=== PATIENT | male | born 1970 | race Caucasian/White ===

== ENCOUNTER 2018-03-07 11:13 | Inpatient (IN) ==
--- NOTE | 2018-03-07 11:39 | Emergency Department Note ---
Skin/Abscess/FB HPI - General Chief complaint: Extremity Injury, Lower Stated complaint: Foot ulcer R foot Time Seen by Provider: 03/07/18 11:24 Source: patient Mode of arrival: ambulatory - History of Present Illness HPI Narrative: Patient states he had an ulcer starting on his right foot on the plantar aspect of the midfoot 1 week ago. Has been increasing swelling and redness to the area. Temperature is 97.2 pulse 104 blood pressure 115/83 pulse ox is 96%. He has no history of diabetes he has had a recent A1c which was 4.6 he has had no previous infections in the past. He has had no trauma no injury to the area. Is an area of redness surrounding the ulceration. Ulcers approximately 1 cm in size - Related Data Home Medications Medication Instructions Recorded Confirmed Acyclovir [Zovirax] 0 gm TP DAILY 03/07/18 03/07/18 Levothyroxine [Synthroid] 50 mcg PO DAILY 03/07/18 03/07/18 PARoxetine HCL [Paxil] 20 mg PO DAILY 03/07/18 03/07/18 Review of Systems All systems ED: reviewed and negative except as stated. Constitutional: Denies: fever Eyes: Denies: eye pain ENT ED: Denies: ear pain Cardiovascular: Denies: chest pain Respiratory: Denies: shortness of breath Gastrointestinal: Denies: abdominal pain Genitourinary: Denies: dysuria Musculoskeletal: Denies: back pain Integumentary: Denies: rash Neurological: Denies: headache Psychiatric: Denies: anxiety Endocrine: Denies: fatigue Hematological/Lymphatic: Denies: easy bleeding Past Medical History - Past Medical History Medical history: Reports: thyroid disease Surgical history ED: Reports: other (ORIF right foot) Family history: Reports: diabetes (Mother father) - Social History smoking status: Current some day smoker (Cigars only) Alcohol use: Reports: Occasionally Drug use: Reports: none Physical Exam Limitations: no limitations General appearance: alert Head: atraumatic Eye: Present: normal appearance ENT: normal exam, normal oropharynx Neck: Present: normal inspection, full ROM Chest: Present: normal inspection Respiratory: Present: normal lung sounds bilaterally. Absent: respiratory distress, wheezes Cardiovascular: Present: regular rate, normal rhythm. Absent: bradycardia, tachycardia Abdominal: Present: soft, normal bowel sounds. Absent: distention, tenderness, guarding, rebound, rigidity Extremities: Present: normal inspection Shoulder: Present: normal inspection, full ROM Arm: Present: normal inspection, full ROM Elbow: Present: normal inspection, full ROM Forearm/Wrist: Present: normal inspection, full ROM Hand: Present: normal inspection, full ROM Hip/Pelvis: Present: normal inspection, full ROM Upper leg: Present: normal inspection, full ROM Knee: Present: normal inspection, full ROM Lower leg: Present: normal inspection, full ROM, erythema Ankle: Present: normal inspection Foot/toe: Present: tenderness, swelling, erythema, other (1 cm ulceration) Neurovascular/Tendon: Present: sensory deficit Back: Present: normal inspection, full ROM. Absent: tenderness, CVA tenderness (R), CVA tenderness (L) Neurological: Present: alert, oriented X3, CN II-XII intact Psychiatric: Present: normal affect, normal mood Skin: Present: warm, dry Course Vital Signs Temperature 97.2 F 03/07/18 11:14 Pulse Rate 104 H 03/07/18 11:14 Blood Pressure 115/83 03/07/18 11:14 Pulse Oximetry (%) 96 03/07/18 11:14 Temperature 97.2 F 03/07/18 11:14 Pulse Rate 106 H 03/07/18 12:49 Respiratory Rate 18 03/07/18 12:49 Blood Pressure 126/78 03/07/18 12:49 Pulse Oximetry (%) 95 03/07/18 12:49 Skin/Abscess/Foreign Body - MDM Narrative Medical decision making narrative: Dr Cote has been consulted and here to evaluate. felt start on vancomycin and admitt for celllulitis secondary to charcot foot. started on vancomycin and Dr Serna , hospitalist contacted and here to evaluate. - Lab Data Result diagrams: 03/07/18 11:50 Lab Results 03/07/18 03/07/18 03/07/18 Range/Units 11:50 11:50 11:50 WBC 6.1 (4.5-11.0) K/mcL RBC 5.15 (4.50-5.90) M/mcL Hgb 16.7 H (13.5-16.5) g/dL Hct 48.1 (41.0-55.0) % POC Hct 48.0 (41.0-55.0) % MCV 93.4 (80.0-100.0) fL MCH 32.5 (26.0-34.0) pg MCHC 34.7 (31.0-36.0) g/dL RDW 12.6 (11.5-14.5) % Plt Count 180 (140-440) K/mcL MPV 7.5 (7.4-10.4) fL Gran % 81.9 H (38.0-78.0) % Lymph % (Auto) 8.9 L (15.5-49.0) % [place] % (Auto) 7.6 (1.0-12.0) % Eos % (Auto) 1.2 (0.0-7.0) % Baso % (Auto) 0.4 (0.0-2.0) % Gran # 5.0 (1.8-8.0) K/mcL Lymph # (Auto) 0.5 L (1.5-4.8) K/mcL [place] # (Auto) 0.5 (0.1-0.9) K/mcL Eos # (Auto) 0.1 (0.0-0.7) K/mcL Baso # (Auto) 0 (0.0-0.3) K/mcL VBG Lactic Acid 1.5 (0.5-2.2) mmol/L POC Sodium 138 (133-145) mmol/L POC Potassium 3.3 (3.3-5.1) mmol/L POC Chloride 102 (96-108) mmol/L POC Total CO2 22 (22-30) mmol/L POC BUN 18 (6-20) mg/dl POC Creatinine 1.0 (0.7-1.2) mg/dl POC Glucose 137 H (70-105) mg/dL POC WB Ioniz Calcium 1.14 L (1.16-1.32) mmol/L Disposition Pt seen by [facility]/PA only: No Clinical Impression: Cellulitis and abscess of foot Disposition: Xfer As Inpt ([facility]) Condition: Fair Referrals: No,PCP [Primary Care Provider] -
[2018-03-07] MEDS ORDERED: VANCOMYCIN 1,000 MG in 0.9 % SODIUM CHLORIDE 250 ML IV ONE (12:14)
[2018-03-07 12:24] LABS: Basophils # (Auto) 0 K/mcL (0.0-0.3); Basophils % (Auto) 0.4 % (0.0-2.0); Eosinophils # (Auto) 0.1 K/mcL (0.0-0.7); Eosinophils % (Auto) 1.2 % (0.0-7.0); Granulocytes % (Auto) 81.9 % (38.0-78.0); Lymphocytes # (Auto) 0.5 K/mcL (1.5-4.8); Lymphocytes % (Auto) 8.9 % (15.5-49.0); Mean Cell Volume 93.4 fL (80.0-100.0); Mean Corpuscular HGB Conc 34.7 g/dL (31.0-36.0); Mean Corpuscular Hemoglobin 32.5 pg (26.0-34.0); Monocytes # (Auto) 0.5 K/mcL (0.1-0.9); Monocytes % (Auto) 7.6 % (1.0-12.0); Platelet Count 180 K/mcL (140-440); RBC 5.15 M/mcL (4.50-5.90); Red Cell Distribution Width 12.6 % (11.5-14.5)
--- NOTE | 2018-03-07 15:32 | Internal Med History&Physical ---
Medical - H&P: [facility] Patient information: Note initiated : 03/07/18 at 3:28 pm Service Date, if different from initiated Date: [] Patient: Cholo Santamaria a 48 y/o M admitted on for Foot ulcer R foot. Chief Complaint: [] Chief complaint: right foot infection, pain History of present illness: Mr. Santamaria is a 48 year old M PMH of hypothyroidism, previous obesity, peripheral neuropathy of unknown etiology, prior right foot osteomyelitis S/P extended IV antibiotics treatment & removal of nail and plate. He has Charcot foot, and his right foot developed some blisters and progressed to erythema & edema about 1 week ago. Now have pain and ulcerations, which is about 1 cm in size. His symptom worsen in the past couple days and experienced subjective fever and chills the last 1-1/2 days. He has no history of diabetes he has had a recent A1c which was 4.6. All systems: reviewed and no additional remarkable complaints except as stated - Musculoskeletal Musculoskeletal: Present: deformity Medical - H&P: PMH Medical history: Osteomyelitis of the right foot, Hypothyroid on supplement replacement, Peripheral neuropathy, previous obesity, depression. Viral infection of right eye on acyclovir Surgical history: ORIF right foot, subsequent removal of nail and plate due to infection Pertinent family history: Diabetes and CAD Social history: Smokes cigars, not cigarettes. Alcohol use: occasionally Medical - H&P: Meds Home Medications Medication Instructions Recorded Confirmed Type Acyclovir [Zovirax] 400 mg PO BID 03/07/18 03/07/18 History Cetirizine HCl [Zyrtec] 10 mg PO DAILY 03/07/18 03/07/18 History Levothyroxine [Synthroid] 50 mcg PO DAILY 03/07/18 03/07/18 History PARoxetine HCL [Paxil] 20 mg PO DAILY 03/07/18 03/07/18 History guaiFENesin [Expectorant] 600 mg PO HS 03/07/18 03/07/18 History guaiFENesin [Expectorant] 800 mg PO DAILY 03/07/18 03/07/18 History Allergies Allergy/AdvReac Type Severity Reaction Status Date / Time bee venom protein (honey bee) Allergy Severe Anaphylaxis Verified 03/07/18 17:34 Medical - H&P: Exam - Constitutional Vitals: Temp Pulse Resp BP Pulse Ox 97.2 F 86 18 123/79 95 03/07/18 11:14 03/07/18 13:28 03/07/18 13:28 03/07/18 13:28 03/07/18 13:28 General appearance: mild distress - Head Head exam: Present: atraumatic, normocephalic - Eye Eye exam: Present: EOMI Pupils: Present: normal accommodation, PERRL - ENT ENT exam: Present: mucous membranes dry - Neck Neck exam: Present: full ROM. Absent: lymphadenopathy, meningismus, tenderness - Respiratory Respiratory exam: Present: CTAB. Absent: accessory muscle use - Cardiovascular Cardiovascular exam: Present: +S1, +S2. Absent: gallop, rubs - GI/Abdominal GI/Abdominal exam: Present: normal bowel sounds, soft. Absent: guarding, rebound, tenderness - Extremities Exam Extremities exam: Present: tenderness Additional comments: Right foot lateral plantar surface with tenderness, erythema and edema, roughly 1 cm lesion, with ulceration. - Neurological Exam Neurological exam: Present: alert, CN II-XII intact, oriented X3 - Psychiatric Psychiatric exam: Present: flat affect - Skin Skin exam: Present: dry, warm Medical - H&P: Reslt - Labs CBC & Chem 7: 03/09/18 03:50 03/09/18 03:50 Labs: Short CBC 03/07/18 Range/Units 11:50 WBC 6.1 (4.5-11.0) K/mcL Hgb 16.7 H (13.5-16.5) g/dL Hct 48.1 (41.0-55.0) % Plt Count 180 (140-440) K/mcL Medical - H&P: A/P (1) Cellulitis and abscess of foot Problem details: IV antibiotics, review labs and MRI. Enocer recommendations later. Current visit: Yes Status: Acute (2) Hypothyroidism Current visit: Yes Status: Acute (3) Peripheral neuropathy and sensorineural hearing impairment syndrome Current visit: Yes Status: Acute (4) Depression Current visit: Yes Status: Acute - Narrative A/P Narrative: Blood cultures, MRI of the right foot to rule out osteomyelitis, broad coverage IV antibiotics vancomycin and Rocephin. Check thyroid status and titrate levothyroxine supplement We'll get consult with Dr. Cote
[2018-03-07] MEDS ORDERED: ONDANSETRON 4 MG/2 ML VIAL IV PRN ×2 (16:07→17:26)
[2018-03-07] MEDS ORDERED: ACETAMINOPHEN 325 MG TABLET PO PRN ×2 (16:07→17:26)
[2018-03-07] MEDS ORDERED: HYDROcodone/APAP 5/325MG TABLET PO PRN ×2 (16:07→17:26)
[2018-03-07] MEDS ORDERED: POTASSIUM CHLORIDE 20 MEQ TABLET PO ONE ×2 (16:25→17:26)
[2018-03-07] MEDS ORDERED: VANCOMYCIN PER PHARMACY IV SCH (17:26)
[2018-03-07] MEDS: NACL 0.9% W/KCL 20MEQ 1,000 ML IV SCH (17:35)
[2018-03-07] MEDS ORDERED: cefTRIAXone 2 GM VIAL IV SCH (18:00)
[2018-03-07] MEDS ORDERED: GADOTERIDOL INJ 20 ML/VIAL IV ONE (18:59)
[2018-03-07] MEDS: DOCUSATE SODIUM 100 MG CAPSULE PO SCH (20:43)
[2018-03-07] MEDS: 0.9 % SODIUM CHLORIDE 10 ML SYRINGE IV SCH (20:43)
[2018-03-07 20:57] LABS: Appearance,Urine CLEAR; Bacteria,Urine 0 /hpf (0); Color,Urine AMBER; Glucose,Urine (UA) NEGATIVE (NEG); Ictotest,Urine NEG (NEG); Leukocyte Esterase,Urine NEG /uL (NEG); Mucus,Urine MOD /hpf (0); Protein,Urine 100 mg/dL (NEG); Specific Gravity,Urine 1.038 (1.000-1.035); Urine Blood NEG mg/dL (<0.03); Urine RBC 5 /hpf (0-1); Urine Squamous Epithelial Cell < 1 /hpf (0-4); Urine WBC 4 /hpf (0-4)
--- NOTE | 2018-03-07 20:58 | General Surgery Consult Note ---
History of Present Illness Patient information: Note initiated : 03/07/18 at 8:51 pm Service Date, if different from initiated Date: [] Patient: Cholo Santamaria 48 y/o M admitted on 03/07/18 for Foot ulcer R foot. Chief Complaint: [] Consult date: 03/07/18 Requesting physician: Aldo Haque (Wound Care Management) History of present illness: I saw this 48 year old gentleman in ER along with Dr. Branden Rivera, ER Physician. Patient presented with a trivial skin ulcer of right mid foot over one week ago , which got infected over period of time. There was no improvement with conservative care. Patient now has cellulitis and ACUTE inflammatory changes with streak cellulitis extending proximally towards upper leg. He has neuropathy with chronic wasting and evolving degenerative changes of both feet. Chronic on left foot and acute on right foot with evolving SEPSIS and SIRS. Medications and Allergies Home Medications Medication Instructions Recorded Confirmed Type Acyclovir [Zovirax] 400 mg PO BID 03/07/18 03/07/18 History Cetirizine HCl [Zyrtec] 10 mg PO DAILY 03/07/18 03/07/18 History Levothyroxine [Synthroid] 50 mcg PO DAILY 03/07/18 03/07/18 History PARoxetine HCL [Paxil] 20 mg PO DAILY 03/07/18 03/07/18 History guaiFENesin [Expectorant] 600 mg PO HS 03/07/18 03/07/18 History guaiFENesin [Expectorant] 800 mg PO DAILY 03/07/18 03/07/18 History Allergies Allergy/AdvReac Type Severity Reaction Status Date / Time bee venom protein (honey bee) Allergy Severe Anaphylaxis Verified 03/07/18 17:34 Exam Temp Pulse Resp BP Pulse Ox 98.5 F 95 H 14 135/88 97 03/07/18 19:58 03/07/18 19:58 03/07/18 19:58 03/07/18 19:58 03/07/18 19:58 - General physical appearance well developed, well nourished, no distress - Eyes PERRL, normal ocular movement - ENT normal pinna, normal nares, normal mucosa, no congestion - Head Head exam IM: Present: atraumatic, normal inspection, normocephalic - Neck no masses, no bruits, trachea midline, no venous distension - Cardiovascular Cardiovascular exam IM: Present: normal rate and rhythm - Respiratory normal expansion, normal respiratory effort, clear to auscultation - Abdomen Abdomen: Present: soft, non tender, bowel sounds - Integumentary Present: other (RIGHT foot soft tissue edema from ankle to toes with discoloration and draiange of serous fluid lateral dorsal mid foot area. ) - Neurologic Present: other (Charcot arthropahty and peripheral neuropathy both feet, ankles and legs. ) - Musculoskeletal Present: other (Etablised deformities of left foot due to Charcot arthropathy on LEFT foot and similar evolving changes of RIGHT foot ) - Psychiatric Present: oriented to time, oriented to person, oriented to place, speech is normal, memory intact Results - Labs 03/08/18 04:30 03/08/18 04:30 Abnormal lab results 03/07/18 03/07/18 03/07/18 Range/Units 11:50 11:50 11:50 Hgb 16.7 H (13.5-16.5) g/dL Gran % 81.9 H (38.0-78.0) % Lymph % (Auto) 8.9 L (15.5-49.0) % Lymph # (Auto) 0.5 L (1.5-4.8) K/mcL ESR 35 H (0-15) mm/hr POC Glucose 137 H (70-105) mg/dL POC WB Ioniz Calcium 1.14 L (1.16-1.32) mmol/L Phosphorus (2.7-4.5) mg/dL 03/07/18 Range/Units 11:50 Hgb (13.5-16.5) g/dL Gran % (38.0-78.0) % Lymph % (Auto) (15.5-49.0) % Lymph # (Auto) (1.5-4.8) K/mcL ESR (0-15) mm/hr POC Glucose (70-105) mg/dL POC WB Ioniz Calcium (1.16-1.32) mmol/L Phosphorus 2.2 L (2.7-4.5) mg/dL Calcium panel 03/07/18 Range/Units 11:50 Phosphorus 2.2 L (2.7-4.5) mg/dL All other labs normal. Assessment and Plan (1) Dermatitis Status: Acute Priority: Medium Comment: IV antibiotics, local wound care. Await imaging studies MRI right foot and ankle (2) Cellulitis and abscess of foot Status: Acute Priority: Medium Comment: IV antibiotics, review labs and MRI. Furhter recommendations later. (3) Sepsis affecting skin Status: Acute Priority: Medium Comment: Reassess and review labs, LATER debridement.
[2018-03-07] MEDS ORDERED: DOCUSATE SODIUM 100 MG CAPSULE PO SCH (21:00)
[2018-03-07] MEDS: VANCOMYCIN 1,500 MG in 0.9 % SODIUM CHLORIDE 500 ML IV SCH (21:39)
[2018-03-07] MEDS ORDERED: 0.9 % SODIUM CHLORIDE 10 ML SYRINGE IV SCH (22:00)
[2018-03-07] MEDS: guaiFENesin 600 MG TAB.SR.12H PO SCH (22:32)
[2018-03-08] MEDS: NACL 0.9% W/KCL 20MEQ 1,000 ML IV SCH ×4 (03:53→20:53)
[2018-03-08] MEDS: 0.9 % SODIUM CHLORIDE 10 ML SYRINGE IV SCH ×3 (04:42→20:50)
[2018-03-08 06:21] LABS: Basophils # (Auto) 0 K/mcL (0.0-0.3); Basophils % (Auto) 0.9 % (0.0-2.0); Eosinophils # (Auto) 0.2 K/mcL (0.0-0.7); Eosinophils % (Auto) 3.3 % (0.0-7.0); Granulocytes % (Auto) 62.7 % (38.0-78.0); Lymphocytes # (Auto) 1.1 K/mcL (1.5-4.8); Lymphocytes % (Auto) 18.9 % (15.5-49.0); Mean Cell Volume 94.6 fL (80.0-100.0); Mean Corpuscular HGB Conc 34.5 g/dL (31.0-36.0); Mean Corpuscular Hemoglobin 32.6 pg (26.0-34.0); Monocytes # (Auto) 0.8 K/mcL (0.1-0.9); Monocytes % (Auto) 14.2 % (1.0-12.0); Platelet Count 178 K/mcL (140-440); RBC 4.43 M/mcL (4.50-5.90); Red Cell Distribution Width 12.6 % (11.5-14.5)
[2018-03-08 06:43] LABS: Estimated Average Glucose(eAG) 97 mg/dL
[2018-03-08 06:55] LABS: ALT/SGPT 15 U/l (0-40); Albumin 3.5 gm/dL (3.2-5.2); Albumin/Globulin Ratio 1.5 (1.0-2.3); Alkaline Phosphatase 52 U/L (39-117); Blood Urea Nitrogen 13 mg/dl (6-20)
[2018-03-08 07:02] LABS: Prealbumin 11.1 mg/dl (20-40)
--- NOTE | 2018-03-08 08:08 | Magnetic Resonance Report ---
History: Draining foot ulcer, neuropathy, evaluate for osteomyelitis TECHNIQUE: Multiplanar imaging was performed using multiple pulse sequences. Prohance contrast was injected and postcontrast T1-weighted views were obtained. FINDINGS: There is a small abscess in the subcutaneous tissues superior lateral to the base of the fifth metatarsal. Measures 1.1 x 1.5 x 2.1 cm. Surrounding this there is moderately severe cellulitis. The edema and cellulitis involves entire foot and extends up to the level of the ankle. The underlying fifth metatarsal shows no evidence of osteomyelitis. However, patient has a Charcot foot with narrowing and early destructive changes in the joint spaces between the talus, calcaneus, navicular, cuboid, cuneiforms and the adjacent bases of the metatarsals. Joint spaces are narrowed and irregular. There are multiple small spurs and small subcortical erosions. There is low level edema throughout the tarsal bones. No fracture is present. There is a pes planus deformity. Mild osteoarthritis is present at the first metatarsal phalangeal joint. IMPRESSION: Abscess in the skin extending down to the deep fascia, superior and lateral to the base of the fifth metatarsal No evidence of osteomyelitis Generalized cellulitis throughout the foot Charcot deformity involving the mid and hindfoot Interpreted and Authenticated by: Lam Karimi 03/08/18
[2018-03-08] MEDS ORDERED: ENOXAPARIN 40 MG/0.4 ML SYRINGE SQ SCH (09:00)
[2018-03-08] MEDS ORDERED: GUAIFENESIN 800 MG PO SCH (09:00)
[2018-03-08] MEDS: cefTRIAXone 2 GM in DEXTROSE 5% IN WATER 50 ML IV SCH (09:34)
[2018-03-08] MEDS: ENOXAPARIN 40 MG/0.4 ML SYRINGE SQ SCH (09:35)
[2018-03-08] MEDS: CETIRIZINE 10 MG TABLET PO SCH (09:35)
[2018-03-08] MEDS: ACYCLOVIR 400 MG TABLET PO SCH ×2 (09:35→20:48)
[2018-03-08] MEDS: LEVOTHYROXINE 50 MCG TABLET PO SCH (09:35)
[2018-03-08] MEDS: PARoxetine 20 MG TABLET PO SCH (09:35)
[2018-03-08] MEDS: guaiFENesin 600 MG TAB.SR.12H PO SCH ×2 (09:35→20:48)
[2018-03-08] MEDS: DOCUSATE SODIUM 100 MG CAPSULE PO SCH ×2 (09:36→20:49)
--- NOTE | 2018-03-08 10:50 | General Surgery Progress Note ---
Subjective Patient reports: no new complaints, other (Patient had an uneventful night. Labs reviewd. Wound examined with Phyllis RAMON) Narrative: Note initiated : 03/08/18 at 10:45 am Service Date, if different from initiated Date: [] Patient: Cholo Santamaria 48 y/o M admitted on 03/07/18 for Foot ulcer R foot. Chief Complaint: [] Objective Temp Pulse Resp BP Pulse Ox 98.5 F 76 18 118/74 95 03/08/18 06:54 03/08/18 06:54 03/08/18 06:54 03/08/18 06:54 03/08/18 06:54 AVSS. No changes in FAVIOLA. Labs MALNUTRITION Pre albumin 11 Elevated CRP and ESR. Normal TSH and A1c. MRI reviewed and report checked. Spoke with Dr. Davian Butcher, [employer] about Charcot disease and management later. L/E: Right foot skin and sub cutaneous abscess dorsal lateral mid foot area. Responding to wound care and IV antibiotics. NEEDS OR debridement and tissue cultures. - Additional Data Intake & Output - Last 24 hours: Intake & Output 03/06/18 03/07/18 03/08/18 03/09/18 05:59 05:59 05:59 05:59 Intake Total 3450 / 3450 Output Total 850 / 850 485 / 485 Balance 2600 / 2600 -485 / -485 Weight 248 lb 14.4 oz - Labs 03/08/18 04:30 03/08/18 04:30 Diabetes panel 03/08/18 Range/Units 04:30 Sodium 139 (133-145) mmol/L Potassium 3.7 (3.3-5.1) mmol/L Chloride 104 (96-108) mmol/L Carbon Dioxide 23 (22-30) mmol/L BUN 13 (6-20) mg/dl Creatinine 0.7 (0.7-1.2) mg/dl Glucose 85 (70-105) mg/dL Hemoglobin A1c 5.0 (4.0-6.0) % HGB Calcium 8.2 L (8.6-10.4) mg/dl AST 17 (0-37) U/l ALT 15 (0-40) U/l Alkaline Phosphatase 52 (39-117) U/L Total Protein 5.9 (5.9-8.4) gm/dL Albumin 3.5 (3.2-5.2) gm/dL Thyroid panel 03/08/18 Range/Units 04:30 TSH 2.41 (0.27-5.01) uIU/ml Calcium panel 03/07/18 03/08/18 Range/Units 11:50 04:30 Calcium 8.2 L (8.6-10.4) mg/dl Phosphorus 2.2 L (2.7-4.5) mg/dL Albumin 3.5 (3.2-5.2) gm/dL Pituitary panel 03/08/18 Range/Units 04:30 Sodium 139 (133-145) mmol/L Potassium 3.7 (3.3-5.1) mmol/L Chloride 104 (96-108) mmol/L Carbon Dioxide 23 (22-30) mmol/L BUN 13 (6-20) mg/dl Creatinine 0.7 (0.7-1.2) mg/dl Glucose 85 (70-105) mg/dL Calcium 8.2 L (8.6-10.4) mg/dl TSH 2.41 (0.27-5.01) uIU/ml Adrenal panel 03/08/18 Range/Units 04:30 Sodium 139 (133-145) mmol/L Potassium 3.7 (3.3-5.1) mmol/L Chloride 104 (96-108) mmol/L Carbon Dioxide 23 (22-30) mmol/L BUN 13 (6-20) mg/dl Creatinine 0.7 (0.7-1.2) mg/dl Glucose 85 (70-105) mg/dL Calcium 8.2 L (8.6-10.4) mg/dl Total Bilirubin 0.7 (0.0-1.0) mg/dL AST 17 (0-37) U/l ALT 15 (0-40) U/l Alkaline Phosphatase 52 (39-117) U/L Total Protein 5.9 (5.9-8.4) gm/dL Albumin 3.5 (3.2-5.2) gm/dL Assessment and Plan (1) Dermatitis Problem details: IV antibiotics, local wound care. Await imaging studies MRI right foot and ankle Status: Acute Current Visit: Yes (2) Cellulitis and abscess of foot Problem details: IV antibiotics, review labs and MRI. Furhter recommendations later. Status: Acute Current Visit: Yes (3) Sepsis affecting skin Problem details: Reassess and review labs, LATER debridement. Status: Acute Current Visit: Yes - Narrative A/P Narrative: Assessment: CSSSI right foot, abscess. Plan: OR debridement in AM Spoke with patient at length about indication for procedure, alternatives , nutrition repletion and need for further ongoing wound care and life style changes. Start patient on OXANDRIN 10 mg PO / Day - Time Spent With Patient Total time spent is greater than 50% in coordination of care (as documented) at patient's floor/unit and/or counseling patient:
[2018-03-08] MEDS: VANCOMYCIN 1,500 MG in 0.9 % SODIUM CHLORIDE 500 ML IV SCH ×2 (11:11→21:20)
--- NOTE | 2018-03-08 20:40 | Internal Med Progress Note ---
Medical - PN: Subj Patient information: Note initiated : 03/08/18 at 8:39 pm Service Date, if different from initiated Date: [] Patient: Cholo Santamaria 48 y/o M admitted on 03/07/18 for Foot Ulcer R Foot/ Cellulitis and Abscess of Foot. Chief Complaint: [] Interval history: Podiatry surgery consultation with Dr. Butcher. - Constitutional Vitals: Vital Signs Temp Pulse Resp BP Pulse Ox 98.8 F 79 24 H 115/80 97 03/08/18 19:49 03/08/18 19:49 03/08/18 19:49 03/08/18 19:49 03/08/18 19:49 Period Temp Pulse Resp BP Sys/Bull Pulse Ox Last 24 Hr 98.1 F-100.0 F 71-96 14-24 113-131/67-80 94-97 Intake and Output 03/08/18 03/08/18 03/08/18 05:59 13:59 21:59 Intake Total 2900 / 2900 1400 / 1400 Output Total 500 / 500 485 / 485 Balance 2400 / 2400 915 / 915 Weight 248 lb 14.4 oz 251 lb 6.4 oz Patient Weight 03/09/18 05:59 Weight 251 lb 6.4 oz Intake & Output: Intake & Output 03/08/18 03/08/18 03/08/18 05:59 13:59 21:59 Intake Total 2900 / 2900 1400 / 1400 Output Total 500 / 500 485 / 485 Balance 2400 / 2400 915 / 915 Weight 248 lb 14.4 oz 251 lb 6.4 oz Intake: IV 1500 / 1500 1000 / 1000 NaCl 0.9% W/KCl 20Meq 1000ML 1, 1000 / 1000 1000 / 1000 000 ml @ 150 mls/hr IV .Q6H40M EDU Rx#:[id number] Vancomycin 1,500 mg In Sodium 500 / 500 Chloride 0.9% 500 ml @ 333.3 mls/hr IV Q12H EDU Rx#: [id number] Oral 1400 / 1400 400 / 400 Output: Void Amount 500 / 500 485 / 485 Other: Meal Lunch Dinner Percent of Meal Consumed 100% 100% Feeding Ability Independent # Voids 1 3 # Bowel Movements 1 Medical - PN: Obj Da - Labs CBC & Chem 7: 03/09/18 03:50 03/09/18 03:50 Labs: Abnormal Lab Results 03/08/18 03/08/18 03/07/18 04:30 04:30 20:21 RBC 4.43 L Hgb Gran % Lymph % (Auto) [place] % (Auto) 14.2 H Lymph # (Auto) 1.1 L ESR POC Glucose Calcium 8.2 L POC WB Ioniz Calcium Phosphorus C-React Prot High Sens 157.0 H Prealbumin 11.1 L Ur Specific [place] 1.038 H Urine Protein 100 A Urine Ketones 20 A Urine Bilirubin 2.0 A Urine Urobilinogen 4.0 A Urine RBC 5 H 03/07/18 03/07/18 03/07/18 11:50 11:50 11:50 RBC Hgb Gran % Lymph % (Auto) [place] % (Auto) Lymph # (Auto) ESR 35 H POC Glucose 137 H Calcium POC WB Ioniz Calcium 1.14 L Phosphorus 2.2 L C-React Prot High Sens Prealbumin Ur Specific [place] Urine Protein Urine Ketones Urine Bilirubin Urine Urobilinogen Urine RBC 03/07/18 11:50 RBC Hgb 16.7 H Gran % 81.9 H Lymph % (Auto) 8.9 L [place] % (Auto) Lymph # (Auto) 0.5 L ESR POC Glucose Calcium POC WB Ioniz Calcium Phosphorus C-React Prot High Sens Prealbumin Ur Specific [place] Urine Protein Urine Ketones Urine Bilirubin Urine Urobilinogen Urine RBC Meds: Medications Acetaminophen (Tylenol) 650 mg PO Q6HP PRN PRN Reason: PAIN/FEVER > 101 Hydrocodone Bitart/Acetaminophen ([place] 5/325mg) 1 tab PO Q6HP PRN PRN Reason: PAIN LEVEL 3-6 Last Admin: 03/07/18 22:15 Dose: 1 tab Acyclovir (Zovirax) 400 mg PO BID [facility] [place] Last Admin: 03/08/18 09:35 Dose: 400 mg Cetirizine HCl (Zyrtec) 10 mg PO DAILY [facility] Last Admin: 03/08/18 09:35 Dose: 10 mg Docusate Sodium (Colace) 100 mg PO BID [facility] [place] Last Admin: 03/08/18 09:36 Dose: Not Given Enoxaparin Sodium (Lovenox) 40 mg SQ DAILY [facility] Last Admin: 03/08/18 09:35 Dose: 40 mg Guaifenesin (Mucinex) 600 mg PO BID [facility] Last Admin: 03/08/18 09:35 Dose: 600 mg Potassium Chloride/Sodium Chloride (Nacl 0.9% W/Kcl 20meq 1000ml) 1,000 mls @ 150 mls/hr IV .Q6H40M [facility] [place] Last Admin: 03/08/18 14:23 Dose: 150 mls/hr Vancomycin HCl 1,500 mg/ (Sodium Chloride) 500 mls @ 333.3 mls/hr IV Q12H [facility] [place] [place] Last Admin: 03/08/18 11:11 Dose: 333.3 mls/hr Ceftriaxone Sodium 2 gm/ (Dextrose) 50 mls @ 100 mls/hr IV Q24H [facility] [place] Last Admin: 03/08/18 09:34 Dose: 100 mls/hr Gentamicin Sulfate 40 mg/Clindamycin Phosphate 300 mg/Bacitracin 25,000 unit/ Sodium Chloride 3,003 mls @ 0 mls/hr IRR ONCE [facility] [place] PRN Reason: As Directed Stop: 03/09/18 12:00 Levothyroxine Sodium (Synthroid) 50 mcg PO QAMAC [facility] [place] Last Admin: 03/08/18 09:35 Dose: 50 mcg Ondansetron HCl (Zofran) 4 mg IV Q6HP PRN PRN Reason: Nausea And Vomiting Oxandrolone (Oxandrin) 5 mg PO BID [facility] [place] Paroxetine HCl (Paxil) 20 mg PO DAILY [facility] Last Admin: 03/08/18 09:35 Dose: 20 mg Sodium Chloride (Saline Flush) 10 ml IV Q8 [facility] Last Admin: 03/08/18 14:24 Dose: Not Given Vancomycin HCl (Vancomycin Per Pharmacy) 1 order IV UD [facility] Medical - PN: A/P - Time Spent With Patient Total time spent is greater than 50% in coordination of care (as documented) at patient's floor/unit and/or counseling patient: (1) Cellulitis and abscess of foot Problem details: IV antibiotics, review labs and MRI. Karleehter recommendations later. Status: Acute Current Visit: Yes (2) Hypothyroidism Status: Acute Current Visit: Yes (3) Peripheral neuropathy and sensorineural hearing impairment syndrome Status: Acute Current Visit: Yes (4) Depression Status: Acute Current Visit: Yes
[2018-03-08] MEDS: OXANDROLONE 2.5 MG TABLET PO SCH (20:47)
[2018-03-09 05:17] LABS: Basophils # (Auto) 0 K/mcL (0.0-0.3); Eosinophils # (Auto) 0.3 K/mcL (0.0-0.7); Granulocytes % (Auto) 50.9 % (38.0-78.0); Lymphocytes # (Auto) 1.4 K/mcL (1.5-4.8); Lymphocytes % (Auto) 32.4 % (15.5-49.0); Mean Cell Volume 94.7 fL (80.0-100.0); Mean Corpuscular HGB Conc 34.5 g/dL (31.0-36.0); Mean Corpuscular Hemoglobin 32.7 pg (26.0-34.0); Monocytes # (Auto) 0.4 K/mcL (0.1-0.9); Monocytes % (Auto) 9.7 % (1.0-12.0); Platelet Count 210 K/mcL (140-440); RBC 4.14 M/mcL (4.50-5.90); Red Cell Distribution Width 12.6 % (11.5-14.5)
[2018-03-09] MEDS: 0.9 % SODIUM CHLORIDE 10 ML SYRINGE IV SCH ×3 (05:21→21:14)
[2018-03-09 05:33] LABS: ALT/SGPT 14 U/l (0-40); Albumin 3.3 gm/dL (3.2-5.2); Albumin/Globulin Ratio 1.4 (1.0-2.3); Alkaline Phosphatase 46 U/L (39-117); Blood Urea Nitrogen 12 mg/dl (6-20)
[2018-03-09] MEDS ORDERED: GENTAMICIN SULFATE 40 MG, CLINDAMYCIN 300 MG, BACITRACIN 25,000 UNIT in SODIUM CHLORIDE... IRR SCH (07:00)
[2018-03-09] MEDS: NACL 0.9% W/KCL 20MEQ 1,000 ML IV SCH ×3 (07:09→10:59)
[2018-03-09] MEDS: LEVOTHYROXINE 50 MCG TABLET PO SCH (07:10)
[2018-03-09] MEDS: VANCOMYCIN 1,500 MG in 0.9 % SODIUM CHLORIDE 500 ML IV SCH ×3 (07:41→21:14)
--- NOTE | 2018-03-09 07:49 | Internal Med Progress Note ---
Medical - PN: Subj Patient information: Note initiated : 03/09/18 at 7:48 am Service Date, if different from initiated Date: [] Patient: Cholo Santamaria 48 y/o M admitted on 03/07/18 for Foot Ulcer R Foot/ Cellulitis and Abscess of Foot. Chief Complaint: [] Interval history: Going to OR surgical I&D with Dr. Butcher - Constitutional Vitals: Vital Signs Temp Pulse Resp BP Pulse Ox 97.7 F 62 22 108/70 94 03/09/18 04:00 03/09/18 04:00 03/09/18 04:00 03/09/18 04:00 03/09/18 04:00 Period Temp Pulse Resp BP Sys/Bull Pulse Ox Last 24 Hr 97.7 F-98.8 F 62-82 18-24 108-131/70-84 94-97 Intake and Output 03/08/18 03/09/18 03/09/18 21:59 05:59 13:59 Intake Total 975 / 975 2000 / 2000 Output Total 550 / 550 1750 / 1750 Balance 425 / 425 250 / 250 Weight 251 lb 6.4 oz Intake & Output: Intake & Output 03/08/18 03/09/18 03/09/18 21:59 05:59 13:59 Intake Total 975 / 975 2000 / 2000 Output Total 550 / 550 1750 / 1750 Balance 425 / 425 250 / 250 Weight 251 lb 6.4 oz Intake: IV 975 / 975 1500 / 1500 NaCl 0.9% W/KCl 20Meq 1000ML 1, 975 / 975 1000 / 1000 000 ml @ 150 mls/hr IV .Q6H40M [facility] Rx#:[id number] Vancomycin 1,500 mg In Sodium 500 / 500 Chloride 0.9% 500 ml @ 333.3 mls/hr IV Q12H [facility] Rx#: [id number] Oral 500 / 500 Output: Void Amount 550 / 550 1750 / 1750 Other: Meal Ensure & cheese stick Percent of Meal Consumed 100% Feeding Ability Independent # Voids 3 Medical - PN: Obj Da - Labs CBC & Chem 7: 03/09/18 03:50 03/09/18 03:50 Labs: Abnormal Lab Results 03/09/18 03/09/18 03/08/18 03:50 03:50 04:30 RBC 4.14 L Hgb Hct 39.2 L Gran % Lymph % (Auto) [place] % (Auto) Lymph # (Auto) 1.4 L ESR POC Glucose Calcium 8.3 L 8.2 L POC WB Ioniz Calcium Phosphorus C-React Prot High Sens 157.0 H Total Protein 5.7 L Prealbumin 11.1 L Ur Specific [place] Urine Protein Urine Ketones Urine Bilirubin Urine Urobilinogen Urine RBC 03/08/18 03/07/18 03/07/18 04:30 20:21 11:50 RBC 4.43 L Hgb Hct Gran % Lymph % (Auto) [place] % (Auto) 14.2 H Lymph # (Auto) 1.1 L ESR POC Glucose Calcium POC WB Ioniz Calcium Phosphorus 2.2 L C-React Prot High Sens Total Protein Prealbumin Ur Specific [place] 1.038 H Urine Protein 100 A Urine Ketones 20 A Urine Bilirubin 2.0 A Urine Urobilinogen 4.0 A Urine RBC 5 H 03/07/18 03/07/18 03/07/18 11:50 11:50 11:50 RBC Hgb 16.7 H Hct Gran % 81.9 H Lymph % (Auto) 8.9 L [place] % (Auto) Lymph # (Auto) 0.5 L ESR 35 H POC Glucose 137 H Calcium POC WB Ioniz Calcium 1.14 L Phosphorus C-React Prot High Sens Total Protein Prealbumin Ur Specific [place] Urine Protein Urine Ketones Urine Bilirubin Urine Urobilinogen Urine RBC Meds: Medications Acetaminophen (Tylenol) 650 mg PO Q6HP PRN PRN Reason: PAIN/FEVER > 101 Hydrocodone Bitart/Acetaminophen ([place] 5/325mg) 1 tab PO Q6HP PRN PRN Reason: PAIN LEVEL 3-6 Last Admin: 03/07/18 22:15 Dose: 1 tab Acyclovir (Zovirax) 400 mg PO BID [facility] Last Admin: 03/08/18 20:48 Dose: 400 mg Cetirizine HCl (Zyrtec) 10 mg PO DAILY [facility] Last Admin: 03/08/18 09:35 Dose: 10 mg Docusate Sodium (Colace) 100 mg PO BID [facility] Last Admin: 03/08/18 20:49 Dose: Not Given Enoxaparin Sodium (Lovenox) 40 mg SQ DAILY [facility] Last Admin: 03/08/18 09:35 Dose: 40 mg Guaifenesin (Mucinex) 600 mg PO BID [facility] Last Admin: 03/08/18 20:48 Dose: 600 mg Potassium Chloride/Sodium Chloride (Nacl 0.9% W/Kcl 20meq 1000ml) 1,000 mls @ 150 mls/hr IV .Q6H40M [facility] Last Admin: 03/09/18 07:09 Dose: 150 mls/hr Vancomycin HCl 1,500 mg/ (Sodium Chloride) 500 mls @ 333.3 mls/hr IV Q12H [facility] Last Admin: 03/09/18 07:41 Dose: 333.3 mls/hr Ceftriaxone Sodium 2 gm/ (Dextrose) 50 mls @ 100 mls/hr IV Q24H [facility] Last Admin: 03/08/18 09:34 Dose: 100 mls/hr Gentamicin Sulfate 40 mg/Clindamycin Phosphate 300 mg/Bacitracin 25,000 unit/ Sodium Chloride 3,003 mls @ 0 mls/hr IRR ONCE [facility] PRN Reason: As Directed Stop: 03/09/18 12:00 Levothyroxine Sodium (Synthroid) 50 mcg PO QAMAC [facility] Last Admin: 03/09/18 07:10 Dose: Not Given Ondansetron HCl (Zofran) 4 mg IV Q6HP PRN PRN Reason: Nausea And Vomiting Oxandrolone (Oxandrin) 5 mg PO BID [facility] Last Admin: 03/08/18 20:47 Dose: 5 mg Paroxetine HCl (Paxil) 20 mg PO DAILY [facility] Last Admin: 03/08/18 09:35 Dose: 20 mg Sodium Chloride (Saline Flush) 10 ml IV Q8 [facility] Last Admin: 03/09/18 05:21 Dose: Not Given Vancomycin HCl (Vancomycin Per Pharmacy) 1 order IV UD [facility] Medical - PN: A/P - Time Spent With Patient Total time spent is greater than 50% in coordination of care (as documented) at patient's floor/unit and/or counseling patient: (1) Cellulitis and abscess of foot Problem details: IV antibiotics, review labs and MRI. Furhter recommendations later. Status: Acute Current Visit: Yes (2) Hypothyroidism Status: Acute Current Visit: Yes (3) Peripheral neuropathy and sensorineural hearing impairment syndrome Status: Acute Current Visit: Yes (4) Depression Status: Acute Current Visit: Yes
[2018-03-09] MEDS ORDERED: cefTRIAXone 2 GM VIAL ONE (08:33)
[2018-03-09] MEDS ORDERED: ONDANSETRON 4 MG/2 ML VIAL IV ONE (09:10)
[2018-03-09] MEDS ORDERED: GLYCOPYRROLATE 0.2 MG/ML VIAL IV ONE (09:10)
[2018-03-09] MEDS ORDERED: MIDAZOLAM 2 MG/2 ML VIAL IV ONE (09:10)
[2018-03-09] MEDS ORDERED: PROPOFOL 200 MG/20 ML VIAL IV ONE (09:10)
[2018-03-09] MEDS ORDERED: fentaNYL 100 MCG/2 ML VIAL IV ONE (09:10)
[2018-03-09] MEDS ORDERED: LIDOCAINE HCL/PF 100 MG/5 ML SYRINGE IV ONE (09:10)
[2018-03-09] MEDS ORDERED: KETAMINE 100 MG/ML ML IV ONE (09:10)
[2018-03-09] MEDS ORDERED: MEPERIDINE 25 MG/ML SYRINGE IV PRN (09:26)
[2018-03-09] MEDS ORDERED: IPRATROPIUM/ALBUTEROL 3 ML AMPUL.NEB NEB PRN (09:26)
[2018-03-09] MEDS ORDERED: fentaNYL 100 MCG/2 ML VIAL IV PRN (09:26)
[2018-03-09] MEDS ORDERED: PROMETHAZINE 25 MG/ML VIAL IV PRN (09:26)
[2018-03-09] MEDS ORDERED: LACTATED RINGERS 1,000 ML IV SCH (09:30)
--- NOTE | 2018-03-09 10:17 | Brief Operative Note ---
Date of procedure: 03/09/18 Pre-op diagnosis: Resolving CSSSI Right foot / Abscess dorsal surface mid foot Post-op diagnosis: same Procedure: Surgical debridement and pulse lavage irrigation. Tissue for histology and tissue cultures for aerobic and anaerobic bacteria Grafts/Implants: No Anesthesia: GLMA Findings: Abscess mid dorsal lateral foot 3 x 2 x 0.5 CM . Redundant plantar callous with small open wound . Patient with Charcot arthropathy Complications: none Surgeon: Best Fuentes Estimated blood loss (cc): 5 Specimens Removed/Pathology: other Condition: stable Disposition: PACU
[2018-03-09] MEDS: OXANDROLONE 2.5 MG TABLET PO SCH ×2 (10:26→21:13)
[2018-03-09] MEDS: guaiFENesin 600 MG TAB.SR.12H PO SCH ×2 (10:26→21:12)
[2018-03-09] MEDS: DOCUSATE SODIUM 100 MG CAPSULE PO SCH ×2 (10:27→21:12)
[2018-03-09] MEDS: ENOXAPARIN 40 MG/0.4 ML SYRINGE SQ SCH (10:27)
[2018-03-09] MEDS: CETIRIZINE 10 MG TABLET PO SCH (10:27)
[2018-03-09] MEDS: ACYCLOVIR 400 MG TABLET PO SCH ×2 (10:27→21:13)
[2018-03-09] MEDS: PARoxetine 20 MG TABLET PO SCH (10:27)
[2018-03-09] MEDS ORDERED: VANCOMYCIN PER PHARMACY IV SCH (10:54)
[2018-03-09] MEDS ORDERED: HYDROcodone/APAP 5/325MG TABLET PO PRN (10:54)
[2018-03-09] MEDS ORDERED: ONDANSETRON 4 MG/2 ML VIAL IV PRN (10:54)
[2018-03-09] MEDS ORDERED: ACETAMINOPHEN 325 MG TABLET PO PRN (10:54)
[2018-03-09] MEDS: cefTRIAXone 2 GM in DEXTROSE 5% IN WATER 50 ML IV SCH (12:33)
[2018-03-10] MEDS: 0.9 % SODIUM CHLORIDE 10 ML SYRINGE IV SCH (06:07)
[2018-03-10] MEDS: NACL 0.9% W/KCL 20MEQ 1,000 ML IV SCH (06:24)
[2018-03-10 06:25] LABS: Basophils # (Auto) 0 K/mcL (0.0-0.3); Basophils % (Auto) 0.8 % (0.0-2.0); Eosinophils # (Auto) 0.3 K/mcL (0.0-0.7); Eosinophils % (Auto) 4.5 % (0.0-7.0); Granulocytes % (Auto) 54.6 % (38.0-78.0); Mean Cell Volume 95.4 fL (80.0-100.0); Mean Corpuscular HGB Conc 34.4 g/dL (31.0-36.0); Mean Corpuscular Hemoglobin 32.8 pg (26.0-34.0); Monocytes # (Auto) 0.6 K/mcL (0.1-0.9); Monocytes % (Auto) 9.1 % (1.0-12.0); Platelet Count 248 K/mcL (140-440); RBC 4.16 M/mcL (4.50-5.90); Red Cell Distribution Width 12.6 % (11.5-14.5)
[2018-03-10 06:47] LABS: ALT/SGPT 19 U/l (0-40); Albumin 3.4 gm/dL (3.2-5.2); Albumin/Globulin Ratio 1.3 (1.0-2.3); Alkaline Phosphatase 47 U/L (39-117); Blood Urea Nitrogen 8 mg/dl (6-20)
--- NOTE | 2018-03-10 06:52 | Operative Note ---
DATE OF OPERATION: 03/09/2018 PREOPERATIVE DIAGNOSES: 1. Resolving complicated skin and skin structure infection of right foot. 2. Abscess, dorsal surface of right midlateral foot. 3. Patient with history of Charcot arthropathy without diabetes involving both feet. POSTOPERATIVE DIAGNOSES: 1. Resolving complicated skin and skin structure infection of right foot. 2. Abscess, dorsal surface of right midlateral foot. 3. Patient with history of Charcot arthropathy without diabetes involving both feet. OPERATION: Surgical debridement and pulse lavage irrigation of right lateral mid foot with tissue samples for culture and sensitivity. ANESTHESIA: General laryngeal mask airway. ANESTHESIOLOGIST: Dr. [facility]. SURGEON: Best Fuentes MD PROCEDURE NOTE: After obtaining informed consent, patient was taken to the operating room. Timeout was called. Correct side was identified. Intravenous antibiotics were already commenced on the floor. Preoperative photograph was taken. The right lower extremity was widely cleaned, prepped and draped in a standard fashion. We first proceeded to carry out a circular incision obtaining about 5 to 6 mm of clear margin from the ulcer site on the anterior lateral aspect of the foot. Very carefully, the wound base was excised. Tissue samples were obtained for histology and cultures and sensitivities. Later the devitalized skin along the lateral aspect was excised down to the level of a thick callus on the plantar surface. This was carefully unroofed and part of it was excised. This showed a small puncture wound, probably site of entry of the wound with soft tissue infection which started this whole process. Thorough irrigation of the wound was carried out with 3 liters of normal saline using 50,000 units of bacitracin, 600 mg of clindamycin and 80 mg of gentamicin. We covered this wound with Xeroform gauze, dry gauze, Kerlix gauze, Rishabh bandage and Edward wrap. Blood loss about 10 mL. Count of swabs, instruments and needles was reported to be correct. Operation was well tolerated. He recovered from anesthesia uneventfully. He was taken to and then to his floor satisfactorily. VD:rose Job ID: [id number] Doc ID: [id number] Best Fuentes MD
[2018-03-10] MEDS ORDERED: LEVOTHYROXINE 50 MCG TABLET PO SCH (07:30)
--- NOTE | 2018-03-10 07:39 | Internal Med Progress Note ---
Medical - PN: Subj Patient information: Note initiated : 03/10/18 at 7:39 am Service Date, if different from initiated Date: [] Patient: Cholo Santamaria 48 y/o M admitted on 03/07/18 for Foot Ulcer R Foot/ Cellulitis and Abscess of Foot. Chief Complaint: [] - Constitutional Vitals: Vital Signs Temp Pulse Resp BP Pulse Ox 97.7 F 64 22 119/76 94 03/10/18 04:00 03/10/18 04:00 03/10/18 04:00 03/10/18 04:00 03/10/18 04:00 Period Temp Pulse Resp BP Sys/Bull Pulse Ox Last 24 Hr 96.9 F-98.5 F 47-84 10-24 97-128/48-79 88-97 Intake and Output 03/09/18 03/10/18 03/10/18 21:59 05:59 13:59 Intake Total 2520 / 2520 1250 / 1250 Output Total 2125 / 2125 1000 / 1000 Balance 395 / 395 250 / 250 Intake & Output: Intake & Output 03/09/18 03/10/18 03/10/18 21:59 05:59 13:59 Intake Total 2520 / 2520 1250 / 1250 Output Total 2125 / 2125 1000 / 1000 Balance 395 / 395 250 / 250 Intake: IV 1000 / 1000 500 / 500 Vancomycin 1,500 mg In Sodium 500 / 500 Chloride 0.9% 500 ml @ 333.3 mls/hr IV Q12H [facility] Rx#: [id number] Oral 1520 / 1520 750 / 750 Output: Void Amount 2125 / 2125 1000 / 1000 Other: Meal Lunch Percent of Meal Consumed 100% Feeding Ability Independent Medical - PN: Obj Da - Labs CBC & Chem 7: 03/10/18 04:30 03/10/18 04:30 Labs: Abnormal Lab Results 03/10/18 03/09/18 03/09/18 04:30 03:50 03:50 RBC 4.16 L 4.14 L Hgb Hct 39.7 L 39.2 L MPV 7.0 L Gran % Lymph % (Auto) [place] % (Auto) Lymph # (Auto) 1.4 L ESR POC Glucose Calcium 8.3 L POC WB Ioniz Calcium Phosphorus C-React Prot High Sens Total Protein 5.7 L Prealbumin Ur Specific [place] Urine Protein Urine Ketones Urine Bilirubin Urine Urobilinogen Urine RBC 03/08/18 03/08/18 03/07/18 04:30 04:30 20:21 RBC 4.43 L Hgb Hct MPV Gran % Lymph % (Auto) [place] % (Auto) 14.2 H Lymph # (Auto) 1.1 L ESR POC Glucose Calcium 8.2 L POC WB Ioniz Calcium Phosphorus C-React Prot High Sens 157.0 H Total Protein Prealbumin 11.1 L Ur Specific [place] 1.038 H Urine Protein 100 A Urine Ketones 20 A Urine Bilirubin 2.0 A Urine Urobilinogen 4.0 A Urine RBC 5 H 03/07/18 03/07/18 03/07/18 11:50 11:50 11:50 RBC Hgb Hct MPV Gran % Lymph % (Auto) [place] % (Auto) Lymph # (Auto) ESR 35 H POC Glucose 137 H Calcium POC WB Ioniz Calcium 1.14 L Phosphorus 2.2 L C-React Prot High Sens Total Protein Prealbumin Ur Specific [place] Urine Protein Urine Ketones Urine Bilirubin Urine Urobilinogen Urine RBC 03/07/18 11:50 RBC Hgb 16.7 H Hct MPV Gran % 81.9 H Lymph % (Auto) 8.9 L [place] % (Auto) Lymph # (Auto) 0.5 L ESR POC Glucose Calcium POC WB Ioniz Calcium Phosphorus C-React Prot High Sens Total Protein Prealbumin Ur Specific [place] Urine Protein Urine Ketones Urine Bilirubin Urine Urobilinogen Urine RBC Meds: Medications Acetaminophen (Tylenol) 650 mg PO Q6HP PRN PRN Reason: PAIN/FEVER > 101 Hydrocodone Bitart/Acetaminophen ([place] 5/325mg) 1 tab PO Q6HP PRN PRN Reason: PAIN LEVEL 3-6 Acyclovir (Zovirax) 400 mg PO BID [facility] Last Admin: 03/09/18 21:13 Dose: 400 mg Cetirizine HCl (Zyrtec) 10 mg PO DAILY [facility] Docusate Sodium (Colace) 100 mg PO BID [facility] Last Admin: 03/09/18 21:12 Dose: Not Given Enoxaparin Sodium (Lovenox) 40 mg SQ DAILY [facility] Guaifenesin (Mucinex) 600 mg PO BID [facility] Last Admin: 03/09/18 21:12 Dose: 600 mg Ceftriaxone Sodium 2 gm/ (Dextrose) 50 mls @ 100 mls/hr IV Q24H [facility] Vancomycin HCl 1,500 mg/ (Sodium Chloride) 500 mls @ 333.3 mls/hr IV Q12H [facility] Last Infusion: 03/09/18 22:50 Dose: Infused Levothyroxine Sodium (Synthroid) 50 mcg PO QAMAC [facility] Ondansetron HCl (Zofran) 4 mg IV Q6HP PRN PRN Reason: Nausea And Vomiting Oxandrolone (Oxandrin) 5 mg PO BID [facility] Last Admin: 03/09/18 21:13 Dose: 5 mg Paroxetine HCl (Paxil) 20 mg PO DAILY [facility] Sodium Chloride (Saline Flush) 10 ml IV Q8 [facility] Last Admin: 03/10/18 06:07 Dose: Not Given Vancomycin HCl (Vancomycin Per Pharmacy) 1 order IV UD [facility] Medical - PN: A/P - Time Spent With Patient Total time spent is greater than 50% in coordination of care (as documented) at patient's floor/unit and/or counseling patient: (1) Cellulitis and abscess of foot Problem details: IV antibiotics, review labs and MRI. Enocer recommendations later. Status: Acute Current Visit: Yes (2) Hypothyroidism Status: Acute Current Visit: Yes (3) Peripheral neuropathy and sensorineural hearing impairment syndrome Status: Acute Current Visit: Yes (4) Depression Status: Acute Current Visit: Yes
[2018-03-10] MEDS ORDERED: 0.9 % SODIUM CHLORIDE 10 ML SYRINGE IV PRN (08:19)
[2018-03-10] MEDS: guaiFENesin 600 MG TAB.SR.12H PO SCH (08:26)
[2018-03-10] MEDS: ACYCLOVIR 400 MG TABLET PO SCH (08:26)
[2018-03-10] MEDS: OXANDROLONE 2.5 MG TABLET PO SCH (08:26)
[2018-03-10] MEDS: DOCUSATE SODIUM 100 MG CAPSULE PO SCH (08:27)
--- NOTE | 2018-03-10 08:58 | General Surgery Progress Note ---
Subjective Patient reports: no new complaints Narrative: Note initiated : 03/10/18 at 8:54 am Service Date, if different from initiated Date: [] Patient: Cholo Santamaria 48 y/o M admitted on 03/07/18 for Foot Ulcer R Foot/ Cellulitis and Abscess of Foot. Chief Complaint: [] P O Day #1. Patient seen with Hospitalist Physician , Lary side show entertainer Nurse and Noy RN. Uneventful night. No new concerns voiced. Dressing of right foot is CDI. Objective Temp Pulse Resp BP Pulse Ox 97.6 F 60 16 115/64 95 03/10/18 07:55 03/10/18 07:55 03/10/18 07:55 03/10/18 07:55 03/10/18 07:55 - Additional Data Intake & Output - Last 24 hours: Intake & Output 03/08/18 03/09/18 03/10/18 03/11/18 05:59 05:59 05:59 05:59 Intake Total 3950 / 3950 4875 / 4875 5270 / 5270 Output Total 850 / 850 2785 / 2785 3925 / 3925 Balance 3100 / 3100 2090 / 2090 1345 / 1345 Weight 248 lb 14.4 oz 251 lb 6.4 oz 03/10/18 08:56 AVSS. FAVIOLA No acute interval changes. L/E: Right foot toes are PWD. Post operative dressing CDI. Lab results reviewed. Normal WBC. Blood c/s Negative. Wound cultures pending. Patient has his own crutches and is comfortable using them. - Labs 03/10/18 04:30 03/10/18 04:30 Diabetes panel 03/10/18 Range/Units 04:30 Sodium 141 (133-145) mmol/L Potassium 4.0 (3.3-5.1) mmol/L Chloride 104 (96-108) mmol/L Carbon Dioxide 27 (22-30) mmol/L BUN 8 (6-20) mg/dl Creatinine 0.7 (0.7-1.2) mg/dl Glucose 81 (70-105) mg/dL Calcium 8.8 (8.6-10.4) mg/dl AST 20 (0-37) U/l ALT 19 (0-40) U/l Alkaline Phosphatase 47 (39-117) U/L Total Protein 6.0 (5.9-8.4) gm/dL Albumin 3.4 (3.2-5.2) gm/dL Calcium panel 03/10/18 Range/Units 04:30 Calcium 8.8 (8.6-10.4) mg/dl Albumin 3.4 (3.2-5.2) gm/dL Pituitary panel 03/10/18 Range/Units 04:30 Sodium 141 (133-145) mmol/L Potassium 4.0 (3.3-5.1) mmol/L Chloride 104 (96-108) mmol/L Carbon Dioxide 27 (22-30) mmol/L BUN 8 (6-20) mg/dl Creatinine 0.7 (0.7-1.2) mg/dl Glucose 81 (70-105) mg/dL Calcium 8.8 (8.6-10.4) mg/dl Adrenal panel 03/10/18 Range/Units 04:30 Sodium 141 (133-145) mmol/L Potassium 4.0 (3.3-5.1) mmol/L Chloride 104 (96-108) mmol/L Carbon Dioxide 27 (22-30) mmol/L BUN 8 (6-20) mg/dl Creatinine 0.7 (0.7-1.2) mg/dl Glucose 81 (70-105) mg/dL Calcium 8.8 (8.6-10.4) mg/dl Total Bilirubin 0.3 (0.0-1.0) mg/dL AST 20 (0-37) U/l ALT 19 (0-40) U/l Alkaline Phosphatase 47 (39-117) U/L Total Protein 6.0 (5.9-8.4) gm/dL Albumin 3.4 (3.2-5.2) gm/dL Assessment and Plan (1) Dermatitis Problem details: IV antibiotics, local wound care. Await imaging studies MRI right foot and ankle Status: Acute Current Visit: Yes (2) Cellulitis and abscess of foot Problem details: IV antibiotics, review labs and MRI. Furhter recommendations later. Status: Acute Current Visit: Yes (3) Sepsis affecting skin Problem details: Reassess and review labs, LATER debridement. Status: Acute Current Visit: Yes - Narrative A/P Narrative: Assessment: Satisfactory post operative progress. Plan: PICC line today. D/C Vancomycin. Continue Rocephin at ONE gram IV daily as out patient. O K to discharge home with instructions. Keep dressing clean and dry. NWB on right foot. Crutches for ambulation. Out patient IV antibiotics Rocephin ONE gram daily. F/U at wound center on Wednesday03/14/2018 - Time Spent With Patient Total time spent is greater than 50% in coordination of care (as documented) at patient's floor/unit and/or counseling patient: 15 - 24 minutes
[2018-03-10] MEDS ORDERED: ENOXAPARIN 40 MG/0.4 ML SYRINGE SQ SCH (09:00)
[2018-03-10] MEDS ORDERED: cefTRIAXone 2 GM in DEXTROSE 5% IN WATER 50 ML IV SCH (09:00)
[2018-03-10] MEDS ORDERED: 0.9 % SODIUM CHLORIDE 10 ML SYRINGE IV SCH (09:00)
[2018-03-10] MEDS ORDERED: PARoxetine 20 MG TABLET PO SCH (09:00)
[2018-03-10] MEDS ORDERED: CETIRIZINE 10 MG TABLET PO SCH (09:00)
[2018-03-10] MEDS: VANCOMYCIN 1,500 MG in 0.9 % SODIUM CHLORIDE 500 ML IV SCH (10:38)
--- NOTE | 2018-03-10 13:14 | Discharge Summary ---
Medical - DS: Prov Patient information: Note initiated : 03/10/18 at 1:02 pm Service Date, if different from initiated Date: [] Patient: Cholo Santamaria 48 y/o M admitted on 03/07/18 for Foot Ulcer R Foot/ Cellulitis and Abscess of Foot. Chief Complaint: [] Date of admission: 03/07/18 17:16 Discharge date: 03/10/18 (home) Primary care physician: PCP No Admitting clinician: Aldo Haque Consults: 03/07/18 Consult to Physician [CONS] Urgent Comment: Please Notify Dr Fuentes when patient arrives Consulting Provider: Best Fuentes Reason For Exam: Physician to Consult 03/07/18 12:47 Consult to Physician [CONS] Stat Comment: Consulting Provider: Aldo Haque Reason For Exam: Physician to Consult 03/07/18 20:50 Consult to Physician [CONS] Routine Comment: Charcot Arthropathy Right foot with cellulitis Consulting Provider: Davian Butcher Reason For Exam: Physician to Consult Attending physician on discharge: Aldo Haque Medical - DS: Meds - Discharge Medications Prescriptions: cefTRIAXone [Rocephin] 2 gm IV Q24H 10 Days #10 vial Active and Home Medications: Home Medications Acyclovir [Zovirax] 400 mg PO BID 03/07/18 [History Confirmed 03/07/18 Last Taken 03/07/18 08:00] Cetirizine HCl [Zyrtec] 10 mg PO DAILY 03/07/18 [History Confirmed 03/07/18 Last Taken 03/07/18 08:00] Levothyroxine [Synthroid] 50 mcg PO DAILY 03/07/18 [History Confirmed 03/07/18 Last Taken 03/07/18 08:00] PARoxetine HCL [Paxil] 20 mg PO DAILY 03/07/18 [History Confirmed 03/07/18 Last Taken 03/07/18 08:00] guaiFENesin [Expectorant] 600 mg PO HS 03/07/18 [History Confirmed 03/07/18 Last Taken 03/06/18 21:00] guaiFENesin [Expectorant] 800 mg PO DAILY 03/07/18 [History Confirmed 03/07/18 Last Taken 03/07/18 08:00] Medical - DS: Hosp Hospital course: Mr. Santamaria is a 48 year old M PMH of hypothyroidism, previous obesity, peripheral neuropathy of unknown etiology, prior right foot osteomyelitis S/P extended IV antibiotics treatment & removal of nail and plate. He has Charcot foot, and his right foot developed some blisters and progressed to erythema & edema about 1 week ago. Now have pain and ulcerations, which is about 1 cm in size. His symptom worsen in the past couple days and experienced subjective fever and chills the last 1-1/2 days. He has no history of diabetes he has had a recent A1c which was 4.6. He was admitted, started on IV vancomycin and Rocephin after blood culture, and MRI showed no evidence of osteomyelitis, subsequently He underwent I&D with . Blood cultures and surgical specimen cultures and gram stains have no growth at the time of discharge. He is to be home with his Jany and daily IV antibiotics with 2 g of Rocephin per Dr. Fuentes's instructions (patient refuses a PICC line and prefer to have outpatient IV antibiotics). He is to follow with Dr. Fuentes's instructions as follow Keep dressing clean and dry. NWB on right foot. Crutches for ambulation. Out patient IV antibiotics Rocephin ONE gram daily. F/U at wound center on Wednesday03/14/2018 Discharge diagnosis: Cellulitis and abscess of foot, right Secondary discharge diagnosis: Hypothyroidism Peripheral neuropathy and sensorineural hearing impairment syndrome Depression - Time Spent with Patient Total time spent providing and/or coordinating discharge services: Greater than 30 minutes Medical - DS: Exam - Constitutional Vitals: Vital Signs Temp Pulse Pulse Resp BP Pulse Ox 03/10/18 12:14 98.3 F 77 15 123/75 96 03/10/18 07:55 97.6 F 60 16 115/64 95 03/10/18 04:00 97.7 F 64 22 119/76 94 03/09/18 23:30 98.4 F 63 22 122/73 97 03/09/18 20:00 98.5 F 79 24 H 116/71 95 Intake and Output 03/09/18 03/10/18 03/10/18 21:59 05:59 13:59 Intake Total 2520 / 2520 1250 / 1250 550 / 550 Output Total 2125 / 2125 1000 / 1000 Balance 395 / 395 250 / 250 550 / 550 Intake: IV 1000 / 1000 500 / 500 550 / 550 Vancomycin 1,500 mg In Sodium 500 / 500 500 / 500 Chloride 0.9% 500 ml @ 333.3 mls/hr IV Q12H [facility] Rx#: [id number] Rocephin 2 gm In Dextrose 5% in 50 / 50 Water 50 ml @ 100 mls/hr IV Q24H [facility] Rx#:[id number] Oral 1520 / 1520 750 / 750 Output: Void Amount 2125 / 2125 1000 / 1000 Other: Meal Lunch Percent of Meal Consumed 100% Feeding Ability Independent Medical - DS: Data Labs on day of discharge: Labs from last 24 hours 03/10/18 03/10/18 03/10/18 10:28 04:30 04:30 WBC 6.3 RBC 4.16 L Hgb 13.6 Hct 39.7 L MCV 95.4 MCH 32.8 MCHC 34.4 RDW 12.6 Plt Count 248 MPV 7.0 L Gran % 54.6 Lymph % (Auto) 31.0 [place] % (Auto) 9.1 Eos % (Auto) 4.5 Baso % (Auto) 0.8 Gran # 3.5 Lymph # (Auto) 2.0 [place] # (Auto) 0.6 Eos # (Auto) 0.3 Baso # (Auto) 0 Sodium 141 Potassium 4.0 Chloride 104 Carbon Dioxide 27 Anion Gap 10.0 BUN 8 Creatinine 0.7 GFR Calculation 113 Glucose 81 Calcium 8.8 Total Bilirubin 0.3 AST 20 ALT 19 Alkaline Phosphatase 47 Total Protein 6.0 Albumin 3.4 Globulin 2.6 Albumin/Globulin Ratio 1.3 Vancomycin Trough 7.0 Preliminary micro results at discharge 03/09/18 14:01 Anaerobic Culture - Preliminary Foot - Right Wound Culture - Preliminary 03/07/18 11:59 Blood Culture - Preliminary Blood 03/07/18 12:08 Blood Culture - Preliminary Blood Medical - DS: A/P - Patient/Caregiver Discharge Instructions Activity: as instructed (follow Dr. Fuentes's instructions) Diet: Low Fat Additional Instructions: Discharge Instructions: Wound Care per Dr Fuentes: 1. Patient to follow up at wound care clinic on Wednesday03/14/18. 2. Out patient antibiotics - Continue Rocephin 1 gram Daily. 3. Keep dressing clean and dry. No Weight Bearing to right foot. Use crutches for ambulation. - Problem Maintenance (1) Cellulitis and abscess of foot Status: Acute Comment: IV antibiotics, review labs and MRI. Furhter recommendations later. (2) Hypothyroidism Status: Acute (3) Peripheral neuropathy and sensorineural hearing impairment syndrome Status: Acute (4) Depression Status: Acute - Follow up Plan Follow up with: Best Fuentes MD [Physician] - (A referral has been sent to [facility]. Their office will be calling you with an appointment. ) Disposition: Home, Self-Care Prognosis: Fair Rehab Potential: Fair Overall status at discharge: patient is progressing back to baseline
--- NOTE | 2018-03-10 14:31 | Surgical Pathology Report ---
HISTOLOGY SPECIMEN MICROSCOPIC DIAGNOSIS SOFT TISSUE, RIGHT LATERAL FOOT, EXCISION: -- SKIN AND SOFT TISSUE WITH MARKED DERMAL ACUTE INFLAMMATION, CONSISTENT WITH DERMAL ABSCESS. (DMT:gonzalo) PROCEDURAL IMPRESSION Right foot ulcer/cellulitis and abscess of foot. GROSS DESCRIPTION Received in formalin labeled with the patient information, is a 1.6 x 1.6 by up to 0.4 cm ring-like excision of purple-underwood tissue with an off-centered 0.5 cm in diameter opening. The margin is inked black and it is sectioned. Totally submitted - one cassette. (STS:sln) Electronically Signed by: Cholo Cool M.D.
== END 2018-03-10 16:00 | disposition home or self-care (01) | DRG 571 ==
LOC: ED 11:13 → MERGE 17:16 → MEDSUR 17:16
PROVIDERS: ADMIT Emergency Medicine; ATTEND Emergency Medicine

== ENCOUNTER 2023-08-23 21:37 | Inpatient (IN) ==
[2023-08-23] MEDS ORDERED: 0.9 % SODIUM CHLORIDE 1,000 ML IV ONE (22:04)
[2023-08-23] MEDS ORDERED: VANCOMYCIN 1,000 MG in 0.9 % SODIUM CHLORIDE 250 ML IV ONE (22:07)
[2023-08-23 22:27] LABS: Basophils # (Auto) 0.02 K/mcL (0.00-0.30); Basophils % (Auto) 0.3 % (0.0-2.0); Eosinophils # (Auto) 0.14 K/mcL (0.00-0.70); Eosinophils % (Auto) 1.9 % (0.0-7.0); Hematocrit 37.5 % (40.1-51.0); Hemoglobin 13.1 g/dL (13.7-17.5); Lymphocytes # (Auto) 1.04 K/mcL (1.50-4.80); Lymphocytes % (Auto) 14.3 % (15.5-49.0); Mean Cell Volume 99.2 fL (80.0-100.0); Mean Corpuscular HGB Conc 34.9 g/dL (31.0-36.0); Mean Platelet Volume 9.6 fL (8.8-12.5); Monocytes % (Auto) 6.9 % (1.0-12.0); Neutrophils % (Auto) 76.2 % (38.0-78.0); Platelet Count 198 K/mcL (140-440); RBC 3.78 M/mcL (4.63-6.08); Red Cell Distribution Width 12.1 % (11.5-14.5); WBC 7.3 K/mcL (4.5-11.0)
[2023-08-23 22:43] LABS: ALT/SGPT 20 U/L (<40); AST/SGOT 20 U/L (<40); Albumin 3.8 gm/dL (3.2-5.2); Albumin/Globulin Ratio 1.4 (1.0-2.3); Alkaline Phosphatase 53 U/L (39-117); Bilirubin,Total 0.5 mg/dL (0.1-1.0); Blood Urea Nitrogen 15 mg/dL (6-20); Calcium 9.1 mg/dL (8.6-10.4); Carbon Dioxide 21 mmol/L (22-30); Chloride 104 mmol/L (96-108); Globulin 2.7 gm/dL (2.2-3.7); Glomerular Filtration Rate 98; Glucose 124 mg/dL (70-105)
[2023-08-24] MEDS ORDERED: PIPERACILLIN SODIUM/TAZOBACTAM 4.5 GM in DEXTROSE 5% IN WATER 50 ML IV ONE (01:12)
[2023-08-24] MEDS ORDERED: ONDANSETRON 4 MG/2 ML VIAL IV PRN ×2 (01:12→09:03)
[2023-08-24] MEDS: KETOROLAC 30 MG/ML VIAL IV PRN ×3 (01:31→17:21)
[2023-08-24] MEDS ORDERED: HYDROcodone/APAP (PP) 5/325MG TABLET (#4) PO SCH (04:00)
[2023-08-24] MEDS ORDERED: HYDROcodone/APAP 5/325MG TABLET PO PRN (04:09)
[2023-08-24 07:46] LABS: Basophils # (Auto) 0.02 K/mcL (0.00-0.30); Basophils % (Auto) 0.4 % (0.0-2.0); Eosinophils # (Auto) 0.14 K/mcL (0.00-0.70); Eosinophils % (Auto) 2.6 % (0.0-7.0); Hematocrit 34.1 % (40.1-51.0); Hemoglobin 11.9 g/dL (13.7-17.5); Lymphocytes # (Auto) 1.26 K/mcL (1.50-4.80); Lymphocytes % (Auto) 23.2 % (15.5-49.0); Mean Cell Volume 101.2 fL (80.0-100.0); Mean Corpuscular HGB Conc 34.9 g/dL (31.0-36.0); Mean Platelet Volume 9.4 fL (8.8-12.5); Monocytes # (Auto) 0.58 K/mcL (0.10-0.90); Monocytes % (Auto) 10.7 % (1.0-12.0); Neutrophils % (Auto) 62.7 % (38.0-78.0); Platelet Count 175 K/mcL (140-440); RBC 3.37 M/mcL (4.63-6.08); Red Cell Distribution Width 12.3 % (11.5-14.5); WBC 5.4 K/mcL (4.5-11.0)
[2023-08-24] MEDS ORDERED: morphine 4 MG/ML VIAL IV PRN (09:03)
[2023-08-24] MEDS ORDERED: traZODone HCL 50 MG TABLET PO PRN (09:03)
[2023-08-24] MEDS ORDERED: IPRATROPIUM/ALBUTEROL 3 ML AMPUL.NEB NEB PRN (09:03)
[2023-08-24] MEDS ORDERED: VANCOMYCIN PER PHARMACY IV SCH (09:06)
[2023-08-24] MEDS: VANCOMYCIN 1,750 MG in 0.9 % SODIUM CHLORIDE 500 ML IV SCH ×2 (10:11→21:37)
[2023-08-24] MEDS: PIPERACILLIN SODIUM/TAZOBACTAM 3.375 GM in DEXTROSE 5% IN WATER 100 ML IV SCH ×3 (10:40→21:38)
[2023-08-24] MEDS ORDERED: guaiFENesin 600 MG TAB.SR.12H PO SCH ×2 (12:59→21:00)
[2023-08-24] MEDS: CETIRIZINE 10 MG TABLET PO SCH (13:19)
[2023-08-24] MEDS: ACETAMINOPHEN 325 MG TABLET PO PRN ×2 (15:21→21:42)
[2023-08-24] MEDS: 0.9 % SODIUM CHLORIDE 10 ML SYRINGE IV SCH ×2 (15:30→21:38)
[2023-08-24] MEDS: MULTIVIT,THER IRON,CA,FA & MIN 1 TABLET PO SCH (21:36)
[2023-08-24] MEDS: valACYclovir 500 MG TABLET PO SCH (21:37)
[2023-08-24] MEDS: PARoxetine 20 MG TABLET PO SCH (21:37)
[2023-08-24] MEDS: HEPARIN 5,000 UNIT/ML VIAL SQ SCH (21:38)
[2023-08-24] MEDS: FLUTICASONE PROPIONATE SPRAY.NAS NS SCH (21:39)
[2023-08-24] MEDS: SENNOSIDES 1 TABLET PO SCH (21:39)
[2023-08-24] MEDS: DOCUSATE SODIUM 100 MG CAPSULE PO SCH (21:39)
[2023-08-25] MEDS: KETOROLAC 30 MG/ML VIAL IV PRN ×3 (00:06→15:24)
[2023-08-25] MEDS: PIPERACILLIN SODIUM/TAZOBACTAM 3.375 GM in DEXTROSE 5% IN WATER 100 ML IV SCH ×3 (05:11→23:02)
[2023-08-25] MEDS: 0.9 % SODIUM CHLORIDE 10 ML SYRINGE IV SCH ×3 (05:11→20:38)
[2023-08-25 06:45] LABS: Basophils # (Auto) 0.02 K/mcL (0.00-0.30); Basophils % (Auto) 0.5 % (0.0-2.0); Eosinophils # (Auto) 0.13 K/mcL (0.00-0.70); Eosinophils % (Auto) 3.3 % (0.0-7.0); Hematocrit 34.3 % (40.1-51.0); Hemoglobin 11.7 g/dL (13.7-17.5); Lymphocytes # (Auto) 0.79 K/mcL (1.50-4.80); Lymphocytes % (Auto) 20.1 % (15.5-49.0); Mean Cell Volume 101.5 fL (80.0-100.0); Mean Corpuscular HGB Conc 34.1 g/dL (31.0-36.0); Monocytes # (Auto) 0.62 K/mcL (0.10-0.90); Monocytes % (Auto) 15.7 % (1.0-12.0); Neutrophils % (Auto) 59.9 % (38.0-78.0); Platelet Count 173 K/mcL (140-440); RBC 3.38 M/mcL (4.63-6.08); Red Cell Distribution Width 12.1 % (11.5-14.5); WBC 3.9 K/mcL (4.5-11.0)
[2023-08-25 07:03] LABS: ALT/SGPT 23 U/L (<40); AST/SGOT 32 U/L (<40); Albumin 3.1 gm/dL (3.2-5.2); Albumin/Globulin Ratio 1.3 (1.0-2.3); Alkaline Phosphatase 44 U/L (39-117); Bilirubin,Total 0.3 mg/dL (0.1-1.0); Blood Urea Nitrogen 14 mg/dL (6-20); Calcium 8.5 mg/dL (8.6-10.4); Carbon Dioxide 23 mmol/L (22-30); Chloride 107 mmol/L (96-108); Globulin 2.4 gm/dL (2.2-3.7); Glomerular Filtration Rate 103; Glucose 92 mg/dL (70-105)
[2023-08-25] MEDS: LEVOTHYROXINE 50 MCG TABLET PO SCH (07:15)
[2023-08-25] MEDS: CETIRIZINE 10 MG TABLET PO SCH (08:55)
[2023-08-25] MEDS: valACYclovir 500 MG TABLET PO SCH ×2 (08:55→20:37)
[2023-08-25] MEDS: LISINOPRIL 10 MG TABLET PO SCH (08:56)
[2023-08-25] MEDS: DOCUSATE SODIUM 100 MG CAPSULE PO SCH ×2 (08:58→20:37)
[2023-08-25] MEDS ORDERED: CETIRIZINE 10 MG TABLET PO SCH (09:00)
[2023-08-25] MEDS: HEPARIN 5,000 UNIT/ML VIAL SQ SCH ×2 (09:00→20:37)
[2023-08-25] MEDS ORDERED: guaiFENesin 600 MG TAB.SR.12H PO SCH (09:00)
[2023-08-25] MEDS: VANCOMYCIN 1,750 MG in 0.9 % SODIUM CHLORIDE 500 ML IV SCH ×2 (11:48→21:01)
[2023-08-25] MEDS: ACETAMINOPHEN 325 MG TABLET PO PRN ×2 (16:58→23:07)
[2023-08-25] MEDS: MULTIVIT,THER IRON,CA,FA & MIN 1 TABLET PO SCH (20:36)
[2023-08-25] MEDS: guaiFENesin 600 MG TAB.SR.12H PO SCH (20:36)
[2023-08-25] MEDS: PARoxetine 20 MG TABLET PO SCH (20:37)
[2023-08-25] MEDS: FLUTICASONE PROPIONATE SPRAY.NAS NS SCH (20:37)
[2023-08-25] MEDS: SENNOSIDES 1 TABLET PO SCH (20:37)
[2023-08-26] MEDS: KETOROLAC 30 MG/ML VIAL IV PRN (01:15)
[2023-08-26] MEDS: PIPERACILLIN SODIUM/TAZOBACTAM 3.375 GM in DEXTROSE 5% IN WATER 100 ML IV SCH ×3 (05:58→23:05)
[2023-08-26] MEDS: 0.9 % SODIUM CHLORIDE 10 ML SYRINGE IV SCH ×3 (05:59→20:40)
[2023-08-26 06:42] LABS: Basophils # (Auto) 0.02 K/mcL (0.00-0.30); Basophils % (Auto) 0.6 % (0.0-2.0); Eosinophils # (Auto) 0.15 K/mcL (0.00-0.70); Eosinophils % (Auto) 4.3 % (0.0-7.0); Hemoglobin 11.7 g/dL (13.7-17.5); Lymphocytes # (Auto) 1.11 K/mcL (1.50-4.80); Lymphocytes % (Auto) 31.9 % (15.5-49.0); Mean Cell Volume 100.6 fL (80.0-100.0); Mean Corpuscular HGB Conc 34.4 g/dL (31.0-36.0); Mean Platelet Volume 8.9 fL (8.8-12.5); Monocytes # (Auto) 0.54 K/mcL (0.10-0.90); Monocytes % (Auto) 15.5 % (1.0-12.0); Neutrophils % (Auto) 46.8 % (38.0-78.0); Platelet Count 178 K/mcL (140-440); RBC 3.38 M/mcL (4.63-6.08); Red Cell Distribution Width 12.1 % (11.5-14.5); WBC 3.5 K/mcL (4.5-11.0)
[2023-08-26 07:16] LABS: ALT/SGPT 33 U/L (<40); AST/SGOT 39 U/L (<40); Albumin 3.1 gm/dL (3.2-5.2); Albumin/Globulin Ratio 1.3 (1.0-2.3); Alkaline Phosphatase 41 U/L (39-117); Bilirubin,Direct < 0.2 mg/dL (0-0.3); Bilirubin,Total < 0.2 mg/dL (0.1-1.0); Blood Urea Nitrogen 13 mg/dL (6-20); Calcium 8.4 mg/dL (8.6-10.4); Carbon Dioxide 23 mmol/L (22-30); Chloride 108 mmol/L (96-108); Globulin 2.4 gm/dL (2.2-3.7); Glomerular Filtration Rate 109; Glucose 90 mg/dL (70-105); Lactate Dehydrogenase 129 U/L (135-225); Phosphorous 4.4 mg/dL (2.5-4.5); Triglycerides 98 mg/dL (<150); Uric Acid 2.6 mg/dL (2.5-8.0)
[2023-08-26] MEDS: LEVOTHYROXINE 50 MCG TABLET PO SCH (07:21)
[2023-08-26] MEDS: LISINOPRIL 10 MG TABLET PO SCH (08:41)
[2023-08-26] MEDS: valACYclovir 500 MG TABLET PO SCH ×2 (08:41→20:31)
[2023-08-26] MEDS: CETIRIZINE 10 MG TABLET PO SCH (08:42)
[2023-08-26] MEDS: guaiFENesin 600 MG TAB.SR.12H PO SCH ×2 (08:42→20:32)
[2023-08-26] MEDS: HEPARIN 5,000 UNIT/ML VIAL SQ SCH ×2 (09:22→20:26)
[2023-08-26] MEDS: DOCUSATE SODIUM 100 MG CAPSULE PO SCH ×2 (09:22→20:26)
[2023-08-26] MEDS: VANCOMYCIN 1,750 MG in 0.9 % SODIUM CHLORIDE 500 ML IV SCH ×2 (10:45→20:40)
[2023-08-26] MEDS: FLUTICASONE PROPIONATE SPRAY.NAS NS SCH (20:26)
[2023-08-26] MEDS: SENNOSIDES 1 TABLET PO SCH (20:27)
[2023-08-26] MEDS: PARoxetine 20 MG TABLET PO SCH (20:32)
[2023-08-26] MEDS: MULTIVIT,THER IRON,CA,FA & MIN 1 TABLET PO SCH (20:32)
[2023-08-26] MEDS: ACETAMINOPHEN 325 MG TABLET PO PRN (22:31)
[2023-08-27] MEDS: PIPERACILLIN SODIUM/TAZOBACTAM 3.375 GM in DEXTROSE 5% IN WATER 100 ML IV SCH ×2 (05:16→15:11)
[2023-08-27] MEDS: 0.9 % SODIUM CHLORIDE 10 ML SYRINGE IV SCH ×2 (05:17→12:26)
[2023-08-27] MEDS: LEVOTHYROXINE 50 MCG TABLET PO SCH (07:48)
[2023-08-27] MEDS: ACETAMINOPHEN 325 MG TABLET PO PRN (07:50)
[2023-08-27] MEDS: LISINOPRIL 10 MG TABLET PO SCH (09:10)
[2023-08-27] MEDS: DOCUSATE SODIUM 100 MG CAPSULE PO SCH (09:10)
[2023-08-27] MEDS: HEPARIN 5,000 UNIT/ML VIAL SQ SCH (09:10)
[2023-08-27] MEDS: valACYclovir 500 MG TABLET PO SCH (09:11)
[2023-08-27] MEDS: CETIRIZINE 10 MG TABLET PO SCH (09:11)
[2023-08-27] MEDS: guaiFENesin 600 MG TAB.SR.12H PO SCH (09:11)
[2023-08-27] MEDS: VANCOMYCIN 1,750 MG in 0.9 % SODIUM CHLORIDE 500 ML IV SCH (12:26)
== END 2023-08-27 16:00 | disposition home or self-care (01) | DRG 565 ==
LOC: ED 21:37 → MEDSUR 08-24 02:27
PROVIDERS: ADMIT Internal Medicine; ATTEND Internal Medicine